=== PATIENT | female | born 2000 | race American Indian/Alaskan Native ===

== ENCOUNTER 2022-01-21 12:47 | Outpatient (CLI) | payer MEDICAID ==
[2022-01-21 13:28] VITALS: BP 111/62
[2022-01-21] MEDS ORDERED: LACTATED RINGERS 500 ML IV ONE (14:12)
--- NOTE | 2022-01-21 16:30 | Ultrasound Report ---
ULTRASOUND OBSTETRIC LIMITED ULTRASOUND BIOPHYSICAL PROFILE INDICATION / CLINICAL INFORMATION: well being. Clinical Gestational Age (GA): 35.4 weeks.days COMPARISON: None available. FINDINGS: BREATHING MOVEMENT = 2 GROSS BODY MOVEMENT = 2 TONE = 2 QUALITATIVE AMNIOTIC FLUID VOLUME = 2 TOTAL BIOPHYSICAL SCORE = 8/8 HEART RATE (beats per minute): 131 PRESENTATION: Cephalic. ADDITIONAL FINDINGS: None. IMPRESSION: 1. Biophysical Score = 8/8 Signer Name: Vivek Hernandes MD Signed: 01/21/2022 4:26 PM Workstation Name: [id number]
== END 2022-01-21 15:08 | disposition home or self-care (01) ==
LOC: TRG 12:47 → APU 12:48 → TRG 15:08
PROVIDERS: ATTEND Obstetrics & Gynecology
DX: Z34.93 Encounter for supervision of normal pregnancy, unspecified, third trimester (principal); Z3A.35 35 weeks gestation of pregnancy
CPT/HCPCS: 59025; 76819

== ENCOUNTER 2022-02-21 04:47 | Inpatient (IN) | payer MEDICAID ==
[2022-02-21] MEDS ORDERED: fentaNYL 100 MCG/2 ML INJ IV ONE (05:54)
[2022-02-21] MEDS ORDERED: LACTATED RINGERS 1,000 ML IV SCH (06:00)
[2022-02-21] MEDS ORDERED: ONDANSETRON 4 MG/2 ML INJ IV NR (06:26)
[2022-02-21] MEDS ORDERED: LOPERAMIDE 2 MG CAP PO PRN (06:34)
[2022-02-21] MEDS ORDERED: AMPICILLIN/NS 2 GM/100 ML 2 GM/100 ML BAG IV ONE (06:34)
[2022-02-21] MEDS ORDERED: OXYTOCIN 10 UNIT/1 ML INJ IM PRN (06:34)
[2022-02-21] MEDS ORDERED: LIDOCAINE (2%) 20 MG/1 ML VIAL 20 ML MDV INFILTRATI NR (06:34)
[2022-02-21] MEDS ORDERED: NALOXONE 0.4 MG/1 ML INJ IV PRN ×2 (06:34→08:45)
[2022-02-21] MEDS ORDERED: miSOPROStol 200 MCG TAB PR PRN (06:34)
[2022-02-21] MEDS ORDERED: PROMETHAZINE 25 MG TAB PO PRN ×2 (06:34→16:06)
[2022-02-21] MEDS ORDERED: ONDANSETRON 4 MG/2 ML INJ IV PRN ×2 (06:34→16:30)
--- NOTE | 2022-02-21 06:42 | History and Physical Report ---
History of Present Illness Date of examination: 02/21/22 Date of admission: 02/21/22 06:20 Chief complaint: I'm having more painful contractions. History of present illness: Pt is a @ 40 wks who presented to triage with increase in painful contractions. Pt was seen by [facility] during this d/t renal pyelectasis that was seen on 20 wks scan. [facility] subsequent scan, pyelectasis was not found and she was released from their care. EDC Confirmation: 02/21/2022 Gestational Age: 40 weeks on admission Past History : 2 Term Births: 0 Premature Births: 0 Living Children: 0 Para: 0 Mult. Births: 0 Prev : 0 Aborta: 1 Elect. Ab: 0 Spont. Ab: 1 Ectopics: 0 # 1 Delivery date: 2015 Weeks Gestation: 6 Delivery type: SAB Comments: recv'd medications and D&C per pt Past Medical History: Reviewed and updated today: Negative Past Medical History Past Surgical History: Reviewed and updated today: D&C: 2016 Family History Summary: Mother - Has Family History of Diabetes - Entered On: 06/17/2021 MGM - Has Family History Breast Cancer - Entered On: 06/17/2021 Social History: Smoking History: Patient is a former smoker. Risk Factors: Smoked Tobacco Use: Former smoker Cigars: Yes -- 5 per week Year Started: 2016 Cigars/Pipes Year Quit: 2020 Cigars/Pipes Years Since Last Quit: 0 Smokeless Tobacco Use: Former Items -- 3 per day Year Started: 2020 Year Quit: 2020 Years Since Last Quit: 0 Counseled to Quit/Cut Down: yes Passive Smoke Exposure: no HIV High Risk Behavior: no Caffeine Use: 2 drinks per day Exercise: no Exercise Counseling: yes Seatbelt Use: preg-outreach counselor % Sun Exposure: rarely Family History Risk Factors: Family History of AK in 1 Female Relative Age < 65: no Family History of AK in 1 Male Relative Age < 55: no No Dietary Counseling Reason: pn yes Alcohol Use: no Past Medical History Anesthesia Complications: negative Anemia: negative Autoimmune Disorder: negative Bleeding Disorder: negative Blood Transfusions: negative Breast Disease: negative Diabetes: negative Heart Disease: negative Hypertension: negative Hepatitis/Liver Disease: negative Kidney Disease/UTI: negative Neurologic/Epilepsy/Migraines: negative Phlebitis/Varicosities: negative Psychiatric: negative Pulmonary Disease/Asthma: negative Thyroid Disease: negative Hospitalizations: negative Surgery (Non-telephonic nurse case manager): D&C: 2016 Abnormal PAP: negative NICOLLE Exposure: negative Infertility: negative Uterine Anomaly: negative Uterine Surgery (not C/S): negative Other Gynecologic Problems: negative Social Hx: Smoking History: Patient is a former smoker. Infection History Hx of STD: none HIV Risk Eval: no Hepatitis B Risk Eval: low risk Personal hx. of genital herpes: no Partner hx. of genital herpes: no Rash, Viral, or Febrile illness since last LMP? no Varicella/Chicken Pox Status: Unknown TB Risk: no Genetic History Congenital Heart Defect: Mom: no Dad: no Terri Disease: Mom: no Dad: no Thalassemia Mom: no Dad: no Neural Tube Defect Mom: no Dad: no Down's Syndrome Mom: no Dad: no Wilman-Sachs Mom: no Dad: no Sickle Cell Disease/Trait Mom: no Dad: no Hemophilia Mom: no Dad: no Muscular Dystrophy Mom: no Dad: no Cystic Fibrosis Mom: no Dad: no Indra Chorea Mom: no Dad: no Mental Retardation Mom: no Dad: no Fragile X Mom: no Dad: no Other Genetic/Chromosomal Disorder Mom: no Dad: no Child w/other defect Mom: no Dad: no Enviromental Exposures Enviromental Exposures Reviewed Xray Exposure: no Medication, drug, or alcohol use since LMP: no Chemical/Other Exposure: no Exposure to Cat Liter: no Hx of Parvovirus (Fifth Disease): no Occupational Exposure to Children: none Active Medications (reviewed today): None Current Allergies (reviewed today): * LATEX (Critical) Past History Past Medical History: no pertinent history Past Surgical History: D&C (2015) Family/Genetic History: diabetes, cancer Social history: no significant social history - Obstetrical History Expected Date of Delivery: 02/21/22 Actual Gestation: 40 Week(s) 0 Day(s) : 2 Para: 0 Hx # Term Pregnancies: 0 Number of Pregnancies: 0 Spontaneous Abortions: 1 Induced : 0 Medications and Allergies Allergies Allergy/AdvReac Type Severity Reaction Status Date / Time No Known Allergies Allergy Unverified 01/21/22 13:10 Active Meds: Active Medications Lactated Ringer's (Lactated Ringers) 1,000 mls @ 125 mls/hr IV DIRECT L[place]TON Last Admin: 02/21/22 06:25 Dose: 125 mls/hr Ondansetron HCl (Ondansetron 4 Mg/2 Ml Inj) 4 mg IV ONCE ONE Stop: 02/21/22 06:27 Review of Systems All systems: negative - Vital Signs Vital signs: Vital Signs Pulse BP 73 128/73 02/21/22 05:09 02/21/22 05:09 Temp Pulse Resp BP Pulse Ox 97.8 F 73 20 128/73 02/21/22 06:35 02/21/22 05:09 02/21/22 06:35 02/21/22 05:09 - Physical Exam Breasts: Positive: deferred Cardiovascular: Regular rate Lungs: Positive: Normal air movement Abdomen: Positive: normal appearance, soft Uterus: Positive: enlarged (Normal size for 40 wks gestation.) Extremities: Positive: normal Deep Tendon Reflex Grade: Normal +2 - Obstetrical FHR: category 1 Uterine Contraction Monitor Mode: External Cervical Dilatation: 3 (Per coordinator of evaluation) Cervical Effacement Percentage: 90 station: -2 Uterine Contraction Pattern: Regular Uterine Tone Measurement Phase: Resting Uterine Contraction Intensity: Moderate Results All other labs normal. GBS POSITIVE HBsAg Screen Negative Negative *1 RPR Non Reactive Non Reactive *2 Rubella Antibodies, IgG 3.74 index Immune >0.99 *3 Non-immune <0.90 Equivocal 0.90 - 0.99 Immune >0.99 ABO Grouping O *4 Rh Factor Positive *5 Please note: Prior records for this patient's ABO / Rh type are not available for additional verification. Antibody Screen Negative Negative *6 Tests: (4) HB Solu + Rflx Fra (650836) Hemoglobin (Hgb) Solubility Negative Negative *44 Tests: (5) HIV Ag/Ab with Reflex ([id number]) HIV Screen 4th Generation wRfx Non Reactive Non Reactive *45 Tests: (6) Varicella-Zoster V Ab, IgG ([id number]) ! Varicella Zoster IgG [L] <135 index Immune >165 *46 Negative <135 Equivocal 135 - 165 Positive >165 A positive result generally indicates exposure to the pathogen or administration of specific immunoglobulins, but it is not indication of active infection or stage of disease. Tests: (7) HCV Antibody reflex to EB ([id number]) HCV Ab <0.1 s/co ratio 0.0-0.9 *47 Tests: (8) Interpretation: ([id number]) ! Interpretation: SPRCS *48 Negative Not infected with HCV, unless recent infection is suspected or other evidence exists to indicate HCV infection. Assessment and Plan A: 21 y.o. @ 40 wks, early labor, GBS positive, varicella non immune. Former smoker. - Patient Problems (1) 40 weeks gestation of Current Visit: Yes Status: Acute Plan to address problem: Admit to labor and delivery. Initiate IV. Drawn admission labs. Augmentation of labor with Pitocin per protocol. Anticipate . (2) GBS (group B streptococcus) infection Current Visit: Yes Status: Acute Plan to address problem: Antibiotics to be given while pt is in labor. (3) Maternal varicella, non-immune Current Visit: Yes Status: Acute Plan to address problem: Offer vaccine . (4) Former cigar smoker Current Visit: Yes Status: Acute
[2022-02-21] MEDS ORDERED: METHYLERGONOVINE MALEATE 0.2 MG/ML VIAL IM PRN (07:00)
[2022-02-21] MEDS ORDERED: CARBOPROST TROMETHAMINE 250 MCG/1 ML INJ IM PRN (07:00)
[2022-02-21] MEDS ORDERED: ACETAMINOPHEN 325 MG TAB PO PRN (07:00)
[2022-02-21] MEDS ORDERED: ePHEDrine SULFATE 50 MG/1 ML INJ IV PRN ×2 (07:00→08:45)
[2022-02-21] MEDS ORDERED: TERBUTALINE 1 MG/1 ML INJ SUB-Q PRN (07:00)
[2022-02-21] MEDS ORDERED: fentaNYL 100 MCG/2 ML INJ IV PRN (07:00)
[2022-02-21] MEDS ORDERED: OXYTOCIN DRIP 30 UNITS/500 ML BAG IV SCH ×2 (07:00)
[2022-02-21] MEDS ORDERED: BUTORPHANOL 2 MG/1 ML INJ IV PRN (07:00)
[2022-02-21] MEDS: LACTATED RINGERS 1,000 ML IV SCH ×2 (07:30→08:42)
[2022-02-21 07:41] LABS: Hematocrit 34.3 % (30.3-42.9); Mean Corpuscular HGB Conc 32 % (30-34); Mean Corpuscular Volume 87 fl (79-97); Platelet Count 151 K/mm3 (140-440); Red Blood Count 3.93 M/mm3 (3.65-5.03); Red Cell Distribution Width 14.9 % (13.2-15.2)
--- NOTE | 2022-02-21 08:50 | Anesthesia Consultation ---
Anesthesia Consult and Med Hx Date of service: 02/21/22 - Airway Anesthetic Teeth Evaluation: Poor (Missing/chipped upper left lateral and central incisors) ROM Head & Neck: Adequate Mental/Hyoid Distance: Adequate Mallampati Class: Class II Intubation Access Assessment: Probably Good - Pulmonary Exam CTA: Yes - Cardiac Exam Cardiac Exam: RRR - Pre-Operative Health Status ASA Pre-Surgery Classification: ASA2 Proposed Anesthetic Plan: Epidural, Spinal - Pulmonary Hx Asthma: No COPD: No Hx Pneumonia: No - Cardiovascular System Hx Hypertension: No - Central Nervous System Hx Seizures: No Hx Psychiatric Problems: No - Endocrine Hx Renal Disease: No Hx End Stage Renal Disease: No Hx Hypothyroidism: No Hx Hyperthyroidism: No - Hematic Hx Anemia: No Hx Sickle Cell Disease: No - Other Systems Hx Alcohol Use: No
--- NOTE | 2022-02-21 08:53 | Progress Note ---
Spinal Anesthesia Block - Spinal Anesthesia Block Start Time: 07:58 Stop Time: 08:22 Performed by:: COSMO LINCOLN Procedure: Combined Spinal-Epidural Patient is requesting epidural for labor and pain. H&P, labs were reviewed. Patient ID confirmed, all questions and concerns were answered, and consent was signed. Timeout was performed at bedside. Patient in sitting position. Sterile prep and drape was performed. 3ml of 1% lidocaine skin wheal at L3- L4 interspace. 17-gauge Tuohy epidural needle was advanced to loss of resistance with saline technique cm x 2 attempts. 25G spinal needle introduced through epidural needle to the spinal space. Clear CSF. Injected .1ml of Precedex in the spinal space. Negative CSF negative blood. Epidural catheter advanced to 15 centimeters. Negative aspiration, test dose 3ml 1.5% Lidocaine with epi - negative. Sterile dressing applied. Patient tolerated procedure.
[2022-02-21] MEDS ORDERED: ACETAMINOPHEN IV 1,000 MG/100 ML BOTTLE IV SCH (09:00)
[2022-02-21] MEDS ORDERED: fentaNYL-BUPIV 2 MCG/ML-0.125% 200 MCG/100 ML BAG EPIDURAL SCH (09:00)
[2022-02-21] MEDS ORDERED: AMPICILLIN/NS 1 GM/50 ML 1 GM/50 ML BAG IV ONE (11:08)
[2022-02-21] MEDS ORDERED: MINERAL OIL 30 ML ORAL LIQD ONE (12:17)
--- NOTE | 2022-02-21 12:49 | Procedure Note ---
OB Delivery Note - Delivery Date of Delivery: 02/21/22 Information Systems Manager: MAGGIE PERALTA Estimated blood loss: <100cc - Vaginal Delivery presentation: vertex Delivery position: OA Intrapartum events: mult.variable deceleratio Delivery induction: none Delivery augmentation: rupture of membranes Delivery monitor: external FHT, external uterine Route of delivery: Delivery placenta: spontaneous Delivery cord: nuchal cord (x1 reduced), 3 umbilical vessels Episiotomy: none Delivery laceration: vaginal side wall Delivery repair: vicryl Anesthesia: epidural - Infant A at 1 minute: 8 at 5 minutes: 9 Gender: Male (2980g 6lbs 9oz)
[2022-02-21] MEDS ORDERED: WITCH HAZEL/ GLYCERIN PAD TP PRN (16:06)
[2022-02-21] MEDS ORDERED: PROMETHAZINE 25 MG RECT SUPP PR PRN (16:06)
[2022-02-21] MEDS ORDERED: LANOLIN/ZINC/DIMETHICONE (LANSINOH) 7 GM TP PRN (16:06)
[2022-02-21] MEDS ORDERED: BENZOCAINE/MENTHOL 20/0.5% TOP SPRAY 56 GM TP PRN (16:06)
[2022-02-21] MEDS ORDERED: diphenhydrAMINE 25 MG CAP PO PRN (17:00)
[2022-02-21] MEDS: IBUPROFEN 800 MG TAB PO SCH (17:36)
[2022-02-21] MEDS ORDERED: HYDROCORTISONE 25 MG RECTAL SUPP PR PRN (22:00)
[2022-02-21] MEDS ORDERED: MINERAL OIL 30 ML ORAL LIQD PO PRN (22:00)
[2022-02-21] MEDS ORDERED: MAGNESIUM HYDROXIDE (MOM) ORAL LIQD UDC PO PRN (22:00)
[2022-02-22] MEDS: IBUPROFEN 800 MG TAB PO SCH ×5 (00:09→22:47)
[2022-02-22] MEDS: DOCUSATE SODIUM 100 MG CAP PO SCH ×3 (00:13→21:22)
[2022-02-22] MEDS: FERROUS SULFATE 325 MG TAB PO SCH ×3 (00:14→21:22)
[2022-02-22 00:48] LABS: Hematocrit 27.7 % (30.3-42.9); Hemoglobin 8.9 gm/dl (10.1-14.3)
[2022-02-22] MEDS: SENNOSIDES/DOCUSATE SODIUM 8.6/50 MG TAB PO SCH (05:04)
--- NOTE | 2022-02-22 08:49 | Progress Note ---
Assessment and Plan A: 21 y.o. s/p , some mildly elevated blood pressures noted since delivery. - Patient Problems (1) (normal spontaneous vaginal delivery) Current Visit: Yes Status: Acute Plan to address problem: Continue with care. Continue to monitor blood pressures. Pre eclampsia labs ordered. RN taking care of patient aware of labs being ordered. Subjective - Subjective Date of service: 02/22/22 Principal diagnosis: s/p Interval history: Pt with some mild range blood pressures with the highest blood pressure since delivery being 150/85. Pt denies FONTANA, blurred vision, spots before her eyes, chest pain, shortness of breath, and upper abdominal pain. Patient reports: appetite normal, voiding normally, pain well controlled, flatus, ambulating normally [place]: doing well Objective - Vital Signs Latest vital signs: Vital Signs Temp Pulse Resp BP BP Pulse Ox Pulse Ox 02/22/22 00:53 99.0 F 71 18 113/57 99 02/21/22 21:18 98.9 F 74 20 150/85 98 02/21/22 19:34 99 02/21/22 16:37 97.8 F 65 20 143/69 99 02/21/22 14:30 97.6 F 70 20 125/72 100 100 02/21/22 13:56 71 128/61 02/21/22 13:46 78 137/63 02/21/22 13:31 76 137/76 02/21/22 13:27 86 124/76 02/21/22 12:36 100 H 99 02/21/22 12:31 91 H 99 02/21/22 12:27 98 F 16 02/21/22 12:26 105 H 98 02/21/22 12:21 134 H 100 02/21/22 12:16 102 H 88 02/21/22 12:11 104 H 99 02/21/22 12:06 86 100 02/21/22 12:01 111 H 98 02/21/22 11:56 80 99 02/21/22 11:51 77 99 02/21/22 11:46 88 144/91 99 02/21/22 11:41 85 99 02/21/22 11:39 98 F 17 02/21/22 11:36 91 H 100 02/21/22 11:31 81 127/73 99 02/21/22 11:26 79 100 02/21/22 11:21 78 99 02/21/22 11:16 76 99 02/21/22 11:11 65 98 02/21/22 11:06 69 99 02/21/22 11:01 76 134/87 99 02/21/22 10:56 67 99 02/21/22 10:51 67 98 02/21/22 10:46 69 97 02/21/22 10:41 80 97 02/21/22 10:36 81 100 02/21/22 10:31 76 99 02/21/22 10:26 69 99 02/21/22 10:21 67 100 02/21/22 10:16 73 99 02/21/22 10:11 78 99 02/21/22 10:06 70 100 02/21/22 10:01 67 99 02/21/22 09:56 68 100 02/21/22 09:51 67 100 02/21/22 09:46 76 131/83 100 02/21/22 09:41 71 98 02/21/22 09:36 73 99 02/21/22 09:32 66 143/73 02/21/22 09:31 62 100 02/21/22 09:26 73 99 02/21/22 09:21 89 100 02/21/22 09:16 68 100 02/21/22 09:11 79 99 02/21/22 09:06 65 99 02/21/22 09:01 80 132/81 100 02/21/22 08:56 76 100 02/21/22 08:51 70 99 Intake and Output 02/21/22 02/22/22 02/22/22 22:59 06:59 14:59 Intake Total 600 240 Balance 600 240 Intake: Oral 360 120 Intake, Free Water 240 120 Other: Total, Intake Amount 360 120 # Voids Void 1 1 - Exam Breasts: Present: deferred Cardiovascular: Present: Regular rate Lungs: Present: Normal air movement Abdomen: Present: normal appearance, soft Vulva: both: normal Uterus: Present: normal, firm Extremities: Present: normal Deep Tendon Reflex Grade: Normal +2 - Labs Labs: Abnormal lab results 02/22/22 Range/Units 00:28 Hgb 8.9 L (10.1-14.3) gm/dl Hct 27.7 L D (30.3-42.9) %
[2022-02-22] MEDS: PRENATAL VIT27-FE FUMARATE-FOLIC ACID VIT TAB PO SCH (11:23)
[2022-02-22] MEDS: oxyCODONE /ACETAMINOPHEN 5-325MG TAB PO PRN (11:25)
[2022-02-22 11:45] LABS: Hemoglobin 9.3 gm/dl (10.1-14.3); Mean Corpuscular HGB Conc 33 % (30-34); Mean Corpuscular Volume 87 fl (79-97); Platelet Count 138 K/mm3 (140-440); Red Blood Count 3.23 M/mm3 (3.65-5.03); Red Cell Distribution Width 14.8 % (13.2-15.2)
[2022-02-22 12:04] LABS: Alanine Aminotransferase 7 units/L (7-56); Uric Acid 3.9 mg/dL (3.5-7.6)
[2022-02-22] MEDS ORDERED: TETANUS,DIPH,PERTUSS(ACELL) VACCINE 0.5 ML SYRINGE IM ONE (12:50)
--- NOTE | 2022-02-22 13:31 | Event Note ---
Date: 02/22/22 Labs reviewed and consulted with Dr. Nelson. Discussed labs with patient. Platelet count is slightly below normal at 138 (Low normal 140 per [facility] lab). Explained that we will have to continue to watch her blood pressures, with an increase in frequency of blood pressure taking to every 4 hours, and redraw Pre Eclampsia labs this evening. Last blood pressure recorded was 146/85. Pt continues to deny FONTANA, blurred vision, spots before her eyes, chest pain, shortness of breath, and upper abdominal pain. Explained that pre eclampsia can happen during the period, there is an increase risk for having seizures, and the mortality can be high from pre eclampsia. We also discussed should her lab work worsen and/or her blood pressures become severe range, she will have to transfer back to labor and delivery for magnesium infusion, labs, blood pressure monitoring. Will hold off on magnesium at this time. Explained plan of care to patient and her mother and they verbalized understanding. All questions and concerns were addressed.
--- NOTE | 2022-02-22 14:02 | Post Anesthesia Evaluation ---
- Post Anesthesia Evaluation Patient Participated: Yes Airway Patent: Yes Stable Respiratory Function: Yes Nausea/Vomiting: No Temp > 96.8F: Yes Pain Manageable: Yes Adequeate Hydration: Yes Anesthesia Complications: No Block Receding Appropriately: Yes
[2022-02-22 19:57] LABS: Hematocrit 27.7 % (30.3-42.9); Mean Corpuscular HGB Conc 33 % (30-34); Mean Corpuscular Volume 87 fl (79-97); Platelet Count 147 K/mm3 (140-440); Red Blood Count 3.18 M/mm3 (3.65-5.03); Red Cell Distribution Width 14.7 % (13.2-15.2)
[2022-02-22 20:17] LABS: Alanine Aminotransferase 8 units/L (7-56)
[2022-02-23] MEDS: IBUPROFEN 800 MG TAB PO SCH ×3 (04:41→15:40)
--- NOTE | 2022-02-23 09:34 | Progress Note ---
Assessment and Plan Pt reports ambulating, voiding, and eating without difficulty. Pt reports she's "frustrated" and she wants to be discharged home today. Pt reports she's not able to sleep well in the hospital and has positive family support at home. Preeclampsia risks d/w pt, including but not limited to seizure, stroke, heart attack, and . POC with precautions reviewed. Pt denies all ssx of preeclampsia at this time. Questions encouraged and answered. Pt verbalizes understanding and agrees to POC. Dr. Blanco made aware. Orders placed for an tihypertensives. Will continue to monitor BP and ssx for worsening. Plan to discharge home later today if remains stable. POC d/w RN. RN verbalizes understanding. - Patient Problems (1) (normal spontaneous vaginal delivery) Current Visit: Yes Status: Acute Subjective - Subjective Date of service: 02/23/22 Principal diagnosis: PPD #2 s/p Patient reports: appetite normal, voiding normally, pain well controlled, ambulating normally, other (pt denies FONTANA, RUQ abdominal pain, and vision changes at this time) [place]: doing well, nursing well Objective - Vital Signs Latest vital signs: Vital Signs Temp Pulse Resp BP BP Pulse Ox Pulse Ox 02/23/22 06:05 64 19 137/76 100 02/23/22 04:32 98.1 F 56 L 18 158/89 100 02/23/22 00:42 98.0 F 59 L 18 151/78 100 02/22/22 21:15 100 02/22/22 20:23 97.7 F 65 18 144/88 99 02/22/22 16:31 98 F 57 L 20 143/74 100 02/22/22 12:05 98 F 61 20 146/85 99 02/22/22 11:25 20 Intake and Output 02/22/22 02/23/22 02/23/22 23:59 07:59 15:59 Intake Total 320 300 Balance 320 300 Intake: Oral 320 Intake, Free Water 300 Other: Total, Intake Amount 320 # Voids Void 1 1 - Exam Breasts: Present: normal, Lungs: Present: Normal air movement Abdomen: Present: normal appearance, soft. Absent: distention, tenderness, guarding Uterus: Present: normal, firm Extremities: Present: normal - Labs Labs: Abnormal lab results 02/22/22 02/22/2222 Range/Units 11:06 11:06 19:18 RBC 3.23 L 3.18 L (3.65-5.03) M/mm3 Hgb 9.3 L 9.0 L (10.1-14.3) gm/dl Hct 28.0 L 27.7 L (30.3-42.9) % Plt Count 138 L (140-440) K/mm3 Creatinine 0.5 L (0.6-1.2) mg/dL Lactate Dehydrogenase 258 H (91-180) units/L 02/22/22 Range/Units 19:18 RBC (3.65-5.03) M/mm3 Hgb (10.1-14.3) gm/dl Hct (30.3-42.9) % Plt Count (140-440) K/mm3 Creatinine (0.6-1.2) mg/dL Lactate Dehydrogenase 233 H (91-180) units/L
[2022-02-23] MEDS: DOCUSATE SODIUM 100 MG CAP PO SCH ×2 (10:07→21:08)
[2022-02-23] MEDS: FERROUS SULFATE 325 MG TAB PO SCH ×2 (10:07→21:09)
[2022-02-23] MEDS: PRENATAL VIT27-FE FUMARATE-FOLIC ACID VIT TAB PO SCH (10:08)
[2022-02-23] MEDS: SENNOSIDES/DOCUSATE SODIUM 8.6/50 MG TAB PO SCH (15:40)
--- NOTE | 2022-02-23 17:26 | Progress Note ---
Subjective Date of service: 02/23/22 (PDPH) Principal diagnosis: PPD #2 s/p Interval history: Anesthesia services called by RN regarding patient complaint of headache. Patient reports persistent headache since shortly after delivery on 02/21/22. Pain is described as "throbbing" and is located at the base of the neck and in the frontal/scientology region. Pain is better with lying down at approx 30 deg and with ice pack to the neck. Pain is worse with sitting and standing. She denies photosensitivity though her mother at bedside states that she has been requesting that room lights be turned off most of the day. She denies tinnitus, diplopia, nasal congestion or other neurologic symptoms. She has been breast feeding, ambulating, and voiding without difficulty. At time of my exam, she is sitting upright in bed with the lights dimmed, in no acute distress. Notably, she has been diagnosed with pre-eclampsia and was started on labetalol this morning. She states that her pain was initially manageable with ibuprofen but may be worse after starting antihypertensives. Patient was previously evaluated by DILAN Hagen for these symptoms and was offered EBP vs conservative management for presumed PDPH. Patient opted for conservative management at that time. I again discussed the likelihood that symptoms are 2/2 PDPH. I discussed the pathophysiology of PDPH as well and expected clinical course for both EBP and conservative management. I discussed risks/benefits of both options. At this time, patient elects for conservative management. She declines IV medications. I advised bed rest as needed, maintaining adequate oral hydration, and PO analgesics. I explained that should she decide to proceed with EBP or if symptoms worsen or do not improve over the next 1-2 wks, she should be re-evaluated by anesthesia services. Patient and mother at bedside verbalized understanding and are in agreement with this plan. Plan discussed with patient's RN. Objective - Constitutional Vitals: Vital Signs - 12hr 02/23/22 02/23/22 02/23/22 06:05 08:30 08:45 Temperature 98.8 F Pulse Rate 64 63 Respiratory 19 20 Rate Blood Pressure 137/76 Blood Pressure 162/93 [Right] O2 Sat by Pulse 100 99 Oximetry O2 Sat by Pulse 98 Oximetry [ Bilateral] 02/23/22 02/23/22 02/23/22 09:50 10:08 11:20 Temperature Pulse Rate 67 Respiratory Rate Blood Pressure 178/99 Blood Pressure 178/99 154/82 [Right] O2 Sat by Pulse Oximetry O2 Sat by Pulse Oximetry [ Bilateral] 02/23/22 15:30 Temperature 97.4 F L Pulse Rate 89 Respiratory 18 Rate Blood Pressure Blood Pressure 130/74 [Right] O2 Sat by Pulse 100 Oximetry O2 Sat by Pulse Oximetry [ Bilateral] - Labs CBC & Chem 7: 02/22/22 19:18 02/22/22 19:18 Labs: Abnormal lab results 02/22/22 02/22/22 Range/Units 19:18 19:18 RBC 3.18 L (3.65-5.03) M/mm3 Hgb 9.0 L (10.1-14.3) gm/dl Hct 27.7 L (30.3-42.9) % Lactate Dehydrogenase 233 H (91-180) units/L
[2022-02-23] MEDS: oxyCODONE /ACETAMINOPHEN 5-325MG TAB PO PRN (18:55)
[2022-02-23] MEDS ORDERED: hydrALAZINE 20 MG/1 ML INJ IV PRN (22:34)
[2022-02-23] MEDS ORDERED: MAGNESIUM SULFATE 4 GM/100 ML BAG IV ONE (22:34)
--- NOTE | 2022-02-23 22:48 | Event Note ---
Date: 02/23/22 received call from RN regarding 2 severe range b/p despite PO labetalol. Pt called on phone; she denies FONTANA, visual changes or epigastric pain. Discussed need to transfer to L&D for IV magnesium sulfate for neuroprotection. Labetalol increased to 300MG TID. All questions addressed, orders in EMR. Dr Blanco updated.
[2022-02-23] MEDS: LACTATED RINGERS 1,000 ML IV SCH (23:51)
[2022-02-24] MEDS: MAGNESIUM SULFATE 40GM/1000ML 40 GM/1,000 ML BAG IV SCH ×2 (00:09→20:21)
[2022-02-24] MEDS: IBUPROFEN 800 MG TAB PO SCH ×2 (07:02→13:18)
[2022-02-24] MEDS: FERROUS SULFATE 325 MG TAB PO SCH (09:20)
[2022-02-24] MEDS: SENNOSIDES/DOCUSATE SODIUM 8.6/50 MG TAB PO SCH (09:22)
[2022-02-24] MEDS: DOCUSATE SODIUM 100 MG CAP PO SCH (09:22)
[2022-02-24] MEDS: PRENATAL VIT27-FE FUMARATE-FOLIC ACID VIT TAB PO SCH (09:26)
[2022-02-24] MEDS: LACTATED RINGERS 1,000 ML IV SCH ×2 (09:30→19:51)
[2022-02-24 09:31] LABS: Hematocrit 28.3 % (30.3-42.9); Hemoglobin 9.4 gm/dl (10.1-14.3); Mean Corpuscular HGB Conc 33 % (30-34); Mean Corpuscular Volume 86 fl (79-97); Platelet Count 178 K/mm3 (140-440); Red Cell Distribution Width 14.5 % (13.2-15.2)
[2022-02-24 09:48] LABS: Alanine Aminotransferase 19 units/L (7-56)
--- NOTE | 2022-02-24 11:44 | Progress Note ---
Assessment and Plan [place] draining clear yellow urine in adequate amounts. Pt performing am care at this time and she reports she's in good spirits. Denies RUQ pain and vision changes. Pt reports an occasional headache which resolves with ibuprofen. POC d/w pt. Questions encouraged and answered. Pt verbalizes understanding and agrees to POC. Dr. Harmon aware. Will continue to monitor BP and ssx for worsening. Discussed plan to discharge home tomorrow if remains stable. POC d/w RN. RN requested to notify provider if BP >160 systolic or >100 diastolic. RN verbalizes understanding. - Patient Problems (1) (normal spontaneous vaginal delivery) Current Visit: Yes Status: Acute (2) Preeclampsia in period Current Visit: Yes Status: Acute Plan to address problem: Continue Labetalol 300mg TID magnesium level q6h as ordered while pt is on medication seizure precautions strict I&O Magnesium Sulfate x24hrs continue to monitor pt BP and ssx for worsening and notify provider with any changes in status Subjective - Subjective Date of service: 02/24/22 Principal diagnosis: PPD #3 s/p , Preeclampsia, Magnesium Sulfate infusing Patient reports: appetite normal, pain well controlled [place]: doing well Objective - Vital Signs Latest vital signs: Vital Signs Temp Pulse Resp BP BP Pulse Ox Pulse Ox 02/24/22 11:37 86 100 02/24/22 11:32 85 99 02/24/22 11:27 83 98 02/24/22 11:22 91 H 100 02/24/22 11:17 93 H 98 02/24/22 11:14 97 H 137/85 02/24/22 11:12 94 H 98 02/24/22 11:07 96 H 98 02/24/22 11:02 103 H 98 02/24/22 10:57 97 H 97 02/24/22 10:55 97 H 94 02/24/22 10:52 99 H 98 02/24/22 10:47 87 100 02/24/22 10:42 87 99 02/24/22 10:37 91 H 98 02/24/22 10:34 105 H 94 98 02/24/22 10:32 101 H 95 02/24/22 10:27 87 98 02/24/22 10:22 95 H 97 02/24/22 10:21 93 H 94 02/24/22 10:17 92 H 98 02/24/22 10:14 86 140/76 02/24/22 10:12 92 H 99 02/24/22 10:07 94 H 99 02/24/22 10:02 94 H 98 02/24/22 09:57 83 98 02/24/22 09:52 92 H 97 02/24/22 09:47 104 H 99 02/24/22 09:42 91 H 99 02/24/22 09:37 87 98 02/24/22 09:32 92 H 99 02/24/22 09:27 95 H 99 02/24/22 09:22 89 98 02/24/22 09:19 93 H 133/78 02/24/22 09:17 89 99 02/24/22 09:14 86 133/78 02/24/22 09:12 85 99 02/24/22 09:07 98 H 98 02/24/22 09:02 91 H 98 02/24/22 08:57 92 H 99 02/24/22 08:52 89 99 02/24/22 08:47 89 97 02/24/22 08:42 94 H 99 02/24/22 08:37 96 H 99 02/24/22 08:32 89 98 02/24/22 08:30 98.7 F 89 16 98 02/24/22 08:27 96 H 99 02/24/22 08:25 98 02/24/22 08:22 96 H 99 02/24/22 08:17 89 98 02/24/22 08:14 106 H 122/71 02/24/22 08:12 84 97 02/24/22 08:07 84 98 02/24/22 08:02 84 97 02/24/22 07:57 85 97 02/24/22 07:52 97 H 96 02/24/22 07:47 89 96 02/24/22 07:42 92 H 97 02/24/22 07:37 94 H 96 02/24/22 07:32 86 97 02/24/22 07:27 87 96 02/24/22 07:22 82 97 02/24/22 07:17 82 98 02/24/22 07:14 80 141/72 02/24/22 07:12 95 H 98 02/24/22 07:07 76 98 02/24/22 07:02 84 18 97 02/24/22 06:57 87 99 02/24/22 06:52 94 H 98 02/24/22 06:47 89 99 02/24/22 06:42 88 99 02/24/22 06:37 91 H 98 02/24/22 06:32 84 99 02/24/22 06:27 94 H 99 02/24/22 06:22 97 H 97 02/24/22 06:19 96 H 112/79 02/24/22 06:17 91 H 97 02/24/22 06:12 97 H 96 02/24/22 06:07 102 H 98 02/24/22 06:02 128 H 92 02/24/22 06:01 65 94 02/24/22 06:00 98 02/24/22 05:57 95 H 98 02/24/22 05:52 92 H 99 02/24/22 05:48 83 133/65 02/24/22 05:47 90 99 02/24/22 05:42 110 H 96 02/24/22 05:37 85 98 02/24/22 05:32 93 H 99 02/24/22 05:27 93 H 99 02/24/22 05:22 80 99 02/24/22 05:18 80 142/72 02/24/22 05:17 84 99 02/24/22 05:12 89 98 02/24/22 05:07 90 97 02/24/22 05:02 96 H 98 02/24/22 04:57 87 100 02/24/22 04:52 92 H 98 02/24/22 04:49 86 147/85 02/24/22 04:47 84 100 02/24/22 04:42 92 H 99 02/24/22 04:37 84 98 02/24/22 04:32 83 99 02/24/22 04:27 86 100 02/24/22 04:22 91 H 98 02/24/22 04:18 87 133/77 02/24/22 04:17 81 98 02/24/22 04:12 90 99 02/24/22 04:07 105 H 98 02/24/22 04:02 85 98 02/24/22 04:00 99 02/24/22 03:57 89 98 02/24/22 03:52 97 H 97 02/24/22 03:49 104 H 128/74 02/24/22 03:47 84 98 02/24/22 03:43 80 141/71 02/24/22 03:42 90 98 02/24/22 03:37 96 H 97 02/24/22 03:32 87 96 02/24/22 03:27 86 97 02/24/22 03:22 94 H 99 02/24/22 03:17 82 99 02/24/22 03:12 83 98 02/24/22 03:07 73 98 02/24/22 03:02 94 H 98 02/24/22 02:57 91 H 98 02/24/22 02:52 92 H 99 02/24/22 02:48 88 130/75 02/24/22 02:47 94 H 98 02/24/22 02:42 84 96 02/24/22 02:37 85 97 02/24/22 02:32 88 98 02/24/22 02:27 85 97 02/24/22 02:22 95 H 99 02/24/22 02:19 90 118/75 02/24/22 02:17 84 99 02/24/22 02:12 89 97 02/24/22 02:07 89 99 02/24/22 02:02 86 97 02/24/22 02:00 99 02/24/22 01:57 87 98 02/24/22 01:52 88 97 02/24/22 01:48 85 129/79 02/24/22 01:47 78 97 02/24/22 01:42 82 97 02/24/22 01:37 83 97 02/24/22 01:32 86 98 02/24/22 01:27 83 99 02/24/22 01:22 83 99 02/24/22 01:19 84 125/91 02/24/22 01:17 85 98 02/24/22 01:12 83 98 02/24/22 01:07 86 99 02/24/22 01:02 77 98 02/24/22 00:57 85 99 02/24/22 00:52 78 100 02/24/22 00:48 86 133/76 02/24/22 00:47 87 99 02/24/22 00:42 84 98 02/24/22 00:37 76 100 02/24/22 00:32 89 100 02/24/22 00:27 94 H 99 02/24/22 00:22 101 H 97 02/24/22 00:17 82 99 02/24/22 00:16 81 148/68 02/24/22 00:12 86 99 02/24/22 00:11 77 154/76 02/24/22 00:05 74 163/78 02/24/22 00:00 98 02/23/22 23:30 68 178/92 02/23/22 22:18 65 20 183/101 97 02/23/22 22:00 97 02/23/22 21:09 70 168/103 02/23/22 21:06 98.6 F 88 18 168/103 02/23/22 21:00 97 02/23/22 20:00 100 02/23/22 19:55 18 02/23/22 15:30 97.4 F L 89 18 130/74 100 Intake and Output 02/23/22 02/24/22 02/24/22 23:59 07:59 15:59 Intake Total 200 500 Output Total 2000 1100 Balance 200 -2000 -600 Intake: Oral 200 500 Output: Urine 2000 1100 Void 2000 1100 Other: Total, Intake Amount 200 500 Total, Output Amount 1100 1100 # Voids Void 2 - Exam Breasts: Present: normal Lungs: Present: Normal air movement Abdomen: Present: normal appearance, soft. Absent: distention, tenderness, guarding Vulva: both: normal Uterus: Present: normal, firm, fundal height below umbilicus Extremities: Present: normal - Labs Labs: Abnormal lab results 02/24/22 02/24/22 02/24/22 Range/Units 08:48 08:48 08:48 RBC 3.30 L (3.65-5.03) M/mm3 Hgb 9.4 L (10.1-14.3) gm/dl Hct 28.3 L (30.3-42.9) % Creatinine 0.5 L (0.6-1.2) mg/dL Magnesium 5.30 H (1.7-2.3) mg/dL
[2022-02-24] MEDS: ACETAMINOPHEN 325 MG TAB PO PRN (19:52)
--- NOTE | 2022-02-24 22:07 | Progress Note ---
Subjective Date of service: 02/24/22 Principal diagnosis: PPD #3 s/p , Preeclampsia, Magnesium Sulfate infusing Interval history: Pt states she would like to receive an epidural blood patch at this time. Objective - Constitutional Vitals: Vital Signs - 12hr 02/24/22 02/24/22 02/24/22 10:07 10:12 10:14 Temperature Pulse Rate 94 H 92 H 86 Respiratory Rate Blood Pressure 140/76 Blood Pressure [Right] O2 Sat by Pulse 99 99 Oximetry O2 Sat by Pulse Oximetry [ Bilateral] 02/24/22 02/24/22 02/24/22 10:17 10:21 10:22 Temperature Pulse Rate 92 H 93 H 95 H Respiratory Rate Blood Pressure Blood Pressure [Right] O2 Sat by Pulse 98 94 97 Oximetry O2 Sat by Pulse Oximetry [ Bilateral] 02/24/22 02/24/22 02/24/22 10:27 10:32 10:34 Temperature Pulse Rate 87 101 H 105 H Respiratory Rate Blood Pressure Blood Pressure [Right] O2 Sat by Pulse 98 95 94 Oximetry O2 Sat by Pulse 98 Oximetry [ Bilateral] 02/24/22 02/24/22 02/24/22 10:37 10:42 10:47 Temperature Pulse Rate 91 H 87 87 Respiratory Rate Blood Pressure Blood Pressure [Right] O2 Sat by Pulse 98 99 100 Oximetry O2 Sat by Pulse Oximetry [ Bilateral] 02/24/22 02/24/22 02/24/22 10:52 10:55 10:57 Temperature Pulse Rate 99 H 97 H 97 H Respiratory Rate Blood Pressure Blood Pressure [Right] O2 Sat by Pulse 98 94 97 Oximetry O2 Sat by Pulse Oximetry [ Bilateral] 02/24/22 02/24/22 02/24/22 11:02 11:07 11:12 Temperature Pulse Rate 103 H 96 H 94 H Respiratory Rate Blood Pressure Blood Pressure [Right] O2 Sat by Pulse 98 98 98 Oximetry O2 Sat by Pulse Oximetry [ Bilateral] 02/24/22 02/24/22 02/24/22 11:14 11:17 11:22 Temperature Pulse Rate 97 H 93 H 91 H Respiratory Rate Blood Pressure 137/85 Blood Pressure [Right] O2 Sat by Pulse 98 100 Oximetry O2 Sat by Pulse Oximetry [ Bilateral] 02/24/22 02/24/22 02/24/22 11:27 11:32 11:37 Temperature Pulse Rate 83 85 86 Respiratory Rate Blood Pressure Blood Pressure [Right] O2 Sat by Pulse 98 99 100 Oximetry O2 Sat by Pulse Oximetry [ Bilateral] 02/24/22 02/24/22 02/24/22 11:42 11:47 11:52 Temperature Pulse Rate 84 85 85 Respiratory Rate Blood Pressure Blood Pressure [Right] O2 Sat by Pulse 96 97 98 Oximetry O2 Sat by Pulse Oximetry [ Bilateral] 02/24/22 02/24/22 02/24/22 11:57 12:02 12:07 Temperature Pulse Rate 82 89 88 Respiratory Rate Blood Pressure Blood Pressure [Right] O2 Sat by Pulse 99 99 97 Oximetry O2 Sat by Pulse Oximetry [ Bilateral] 02/24/22 02/24/22 02/24/22 12:12 12:17 12:22 Temperature Pulse Rate 85 90 92 H Respiratory Rate Blood Pressure Blood Pressure [Right] O2 Sat by Pulse 96 98 98 Oximetry O2 Sat by Pulse Oximetry [ Bilateral] 02/24/22 02/24/22 02/24/22 12:23 12:27 12:30 Temperature Pulse Rate 86 80 Respiratory Rate Blood Pressure 121/75 Blood Pressure [Right] O2 Sat by Pulse 98 Oximetry O2 Sat by Pulse 97 Oximetry [ Bilateral] 02/24/22 02/24/22 02/24/22 12:32 12:35 12:37 Temperature 98.3 F Pulse Rate 85 86 83 Respiratory 20 Rate Blood Pressure Blood Pressure 121/75 [Right] O2 Sat by Pulse 97 97 97 Oximetry O2 Sat by Pulse Oximetry [ Bilateral] 02/24/22 02/24/22 02/24/22 12:42 12:47 12:52 Temperature Pulse Rate 93 H 84 86 Respiratory Rate Blood Pressure Blood Pressure [Right] O2 Sat by Pulse 97 97 95 Oximetry O2 Sat by Pulse Oximetry [ Bilateral] 02/24/22 02/24/22 02/24/22 12:57 13:02 13:07 Temperature Pulse Rate 88 88 82 Respiratory Rate Blood Pressure Blood Pressure [Right] O2 Sat by Pulse 96 100 97 Oximetry O2 Sat by Pulse Oximetry [ Bilateral] 02/24/22 02/24/22 02/24/22 13:12 13:14 13:16 Temperature Pulse Rate 90 93 H 88 Respiratory Rate Blood Pressure 133/83 Blood Pressure [Right] O2 Sat by Pulse 97 92 Oximetry O2 Sat by Pulse Oximetry [ Bilateral] 02/24/22 02/24/22 02/24/22 13:17 13:22 13:27 Temperature Pulse Rate 87 89 87 Respiratory Rate Blood Pressure Blood Pressure [Right] O2 Sat by Pulse 98 100 95 Oximetry O2 Sat by Pulse Oximetry [ Bilateral] 02/24/22 02/24/22 02/24/22 13:28 13:32 13:37 Temperature Pulse Rate 85 90 83 Respiratory Rate Blood Pressure Blood Pressure [Right] O2 Sat by Pulse 94 98 97 Oximetry O2 Sat by Pulse Oximetry [ Bilateral] 02/24/22 02/24/22 02/24/22 13:42 13:44 13:47 Temperature Pulse Rate 87 74 94 H Respiratory Rate Blood Pressure Blood Pressure [Right] O2 Sat by Pulse 97 93 97 Oximetry O2 Sat by Pulse Oximetry [ Bilateral] 02/24/22 02/24/22 02/24/22 13:52 13:57 14:02 Temperature Pulse Rate 88 87 84 Respiratory Rate Blood Pressure Blood Pressure [Right] O2 Sat by Pulse 96 98 98 Oximetry O2 Sat by Pulse Oximetry [ Bilateral] 02/24/22 02/24/22 02/24/22 14:07 14:11 14:12 Temperature Pulse Rate 89 85 87 Respiratory Rate Blood Pressure Blood Pressure [Right] O2 Sat by Pulse 97 94 98 Oximetry O2 Sat by Pulse Oximetry [ Bilateral] 02/24/22 02/24/22 02/24/22 14:14 14:17 14:22 Temperature Pulse Rate 84 87 97 H Respiratory Rate Blood Pressure 136/84 Blood Pressure [Right] O2 Sat by Pulse 99 94 Oximetry O2 Sat by Pulse Oximetry [ Bilateral] 02/24/22 02/24/22 02/24/22 14:27 14:32 14:35 Temperature Pulse Rate 85 91 H Respiratory Rate Blood Pressure Blood Pressure [Right] O2 Sat by Pulse 99 97 Oximetry O2 Sat by Pulse 95 Oximetry [ Bilateral] 02/24/22 02/24/22 02/24/22 14:37 14:42 14:47 Temperature Pulse Rate 91 H 93 H 97 H Respiratory Rate Blood Pressure Blood Pressure [Right] O2 Sat by Pulse 95 97 96 Oximetry O2 Sat by Pulse Oximetry [ Bilateral] 02/24/22 02/24/22 02/24/22 14:52 14:57 15:02 Temperature Pulse Rate 85 87 75 Respiratory Rate Blood Pressure Blood Pressure [Right] O2 Sat by Pulse 98 99 97 Oximetry O2 Sat by Pulse Oximetry [ Bilateral] 02/24/22 02/24/22 02/24/22 15:07 15:12 15:14 Temperature Pulse Rate 77 85 80 Respiratory Rate Blood Pressure 144/70 Blood Pressure [Right] O2 Sat by Pulse 96 98 Oximetry O2 Sat by Pulse Oximetry [ Bilateral] 02/24/22 02/24/22 02/24/22 15:17 15:22 15:27 Temperature Pulse Rate 85 79 85 Respiratory Rate Blood Pressure 144/70 Blood Pressure [Right] O2 Sat by Pulse 98 98 98 Oximetry O2 Sat by Pulse Oximetry [ Bilateral] 02/24/22 02/24/22 02/24/22 15:28 15:32 15:37 Temperature Pulse Rate 88 80 81 Respiratory Rate Blood Pressure Blood Pressure [Right] O2 Sat by Pulse 92 100 99 Oximetry O2 Sat by Pulse Oximetry [ Bilateral] 02/24/22 02/24/22 02/24/22 15:42 15:47 15:52 Temperature Pulse Rate 93 H 92 H 89 Respiratory Rate Blood Pressure Blood Pressure [Right] O2 Sat by Pulse 98 96 96 Oximetry O2 Sat by Pulse Oximetry [ Bilateral] 02/24/22 02/24/22 02/24/22 15:57 15:58 16:02 Temperature Pulse Rate 83 88 89 Respiratory Rate Blood Pressure Blood Pressure [Right] O2 Sat by Pulse 95 93 97 Oximetry O2 Sat by Pulse Oximetry [ Bilateral] 02/24/22 02/24/22 02/24/22 16:07 16:12 16:14 Temperature Pulse Rate 82 79 84 Respiratory Rate Blood Pressure 136/77 Blood Pressure [Right] O2 Sat by Pulse 96 96 Oximetry O2 Sat by Pulse Oximetry [ Bilateral] 02/24/22 02/24/22 02/24/22 16:17 16:22 16:27 Temperature Pulse Rate 93 H 77 Respiratory Rate Blood Pressure Blood Pressure [Right] O2 Sat by Pulse 98 97 100 Oximetry O2 Sat by Pulse Oximetry [ Bilateral] 02/24/22 02/24/22 02/24/22 16:32 16:37 16:42 Temperature Pulse Rate 87 81 78 Respiratory Rate Blood Pressure Blood Pressure [Right] O2 Sat by Pulse 98 97 97 Oximetry O2 Sat by Pulse Oximetry [ Bilateral] 02/24/22 02/24/22 02/24/22 16:47 16:52 16:57 Temperature Pulse Rate 81 81 83 Respiratory Rate Blood Pressure Blood Pressure [Right] O2 Sat by Pulse 100 97 98 Oximetry O2 Sat by Pulse Oximetry [ Bilateral] 02/24/22 02/24/22 02/24/22 17:02 17:07 17:12 Temperature Pulse Rate 83 84 87 Respiratory Rate Blood Pressure Blood Pressure [Right] O2 Sat by Pulse 96 97 97 Oximetry O2 Sat by Pulse Oximetry [ Bilateral] 02/24/22 02/24/22 02/24/22 17:14 17:17 17:22 Temperature Pulse Rate 95 H 82 90 Respiratory Rate Blood Pressure 135/65 Blood Pressure [Right] O2 Sat by Pulse 97 98 Oximetry O2 Sat by Pulse Oximetry [ Bilateral] 02/24/22 02/24/22 02/24/22 17:27 17:32 17:37 Temperature Pulse Rate 91 H 89 84 Respiratory Rate Blood Pressure Blood Pressure [Right] O2 Sat by Pulse 98 98 97 Oximetry O2 Sat by Pulse Oximetry [ Bilateral] 02/24/22 02/24/22 02/24/22 17:42 17:47 17:52 Temperature Pulse Rate 87 88 83 Respiratory Rate Blood Pressure Blood Pressure [Right] O2 Sat by Pulse 96 98 96 Oximetry O2 Sat by Pulse Oximetry [ Bilateral] 02/24/22 02/24/22 02/24/22 17:57 18:02 18:07 Temperature Pulse Rate 82 90 95 H Respiratory Rate Blood Pressure Blood Pressure [Right] O2 Sat by Pulse 96 97 97 Oximetry O2 Sat by Pulse Oximetry [ Bilateral] 02/24/22 02/24/22 02/24/22 18:12 18:14 18:17 Temperature Pulse Rate 89 85 88 Respiratory Rate Blood Pressure 143/83 Blood Pressure [Right] O2 Sat by Pulse 99 98 Oximetry O2 Sat by Pulse Oximetry [ Bilateral] 02/24/22 02/24/22 02/24/22 18:22 18:27 18:32 Temperature Pulse Rate 90 90 89 Respiratory Rate Blood Pressure Blood Pressure [Right] O2 Sat by Pulse 99 99 99 Oximetry O2 Sat by Pulse Oximetry [ Bilateral] 02/24/22 02/24/22 02/24/22 18:37 18:42 18:47 Temperature Pulse Rate 93 H 86 81 Respiratory Rate Blood Pressure Blood Pressure [Right] O2 Sat by Pulse 97 99 99 Oximetry O2 Sat by Pulse Oximetry [ Bilateral] 02/24/22 02/24/22 02/24/22 18:52 18:57 19:02 Temperature Pulse Rate 90 93 H 90 Respiratory Rate Blood Pressure Blood Pressure [Right] O2 Sat by Pulse 99 97 97 Oximetry O2 Sat by Pulse Oximetry [ Bilateral] 02/24/22 02/24/22 02/24/22 19:07 19:12 19:14 Temperature Pulse Rate 88 88 83 Respiratory Rate Blood Pressure 139/83 Blood Pressure [Right] O2 Sat by Pulse 97 99 Oximetry O2 Sat by Pulse Oximetry [ Bilateral] 02/24/22 02/24/22 02/24/22 19:17 19:22 19:25 Temperature Pulse Rate 92 H 87 Respiratory Rate Blood Pressure Blood Pressure [Right] O2 Sat by Pulse 100 99 Oximetry O2 Sat by Pulse 97 Oximetry [ Bilateral] 02/24/22 02/24/22 02/24/22 19:27 19:32 19:36 Temperature 97.4 F L Pulse Rate 88 88 Respiratory Rate Blood Pressure Blood Pressure [Right] O2 Sat by Pulse 98 99 Oximetry O2 Sat by Pulse Oximetry [ Bilateral] 02/24/22 02/24/22 02/24/22 19:37 19:42 19:47 Temperature Pulse Rate 84 81 82 Respiratory Rate Blood Pressure Blood Pressure [Right] O2 Sat by Pulse 97 98 98 Oximetry O2 Sat by Pulse Oximetry [ Bilateral] 02/24/22 02/24/22 02/24/22 19:52 19:57 20:02 Temperature Pulse Rate 82 91 H 92 H Respiratory Rate Blood Pressure Blood Pressure [Right] O2 Sat by Pulse 97 98 99 Oximetry O2 Sat by Pulse Oximetry [ Bilateral] 02/24/22 02/24/22 02/24/22 20:04 20:07 20:12 Temperature Pulse Rate 99 H 89 91 H Respiratory Rate Blood Pressure Blood Pressure [Right] O2 Sat by Pulse 85 97 99 Oximetry O2 Sat by Pulse Oximetry [ Bilateral] 02/24/22 02/24/22 02/24/22 20:14 20:16 20:17 Temperature Pulse Rate 89 89 79 Respiratory Rate Blood Pressure 158/100 Blood Pressure [Right] O2 Sat by Pulse 93 100 Oximetry O2 Sat by Pulse Oximetry [ Bilateral] 02/24/22 02/24/22 02/24/22 20:22 20:23 20:25 Temperature Pulse Rate 85 85 80 Respiratory Rate Blood Pressure 151/91 Blood Pressure [Right] O2 Sat by Pulse 96 92 Oximetry O2 Sat by Pulse Oximetry [ Bilateral] 02/24/22 02/24/22 02/24/22 20:27 20:32 20:37 Temperature Pulse Rate 83 86 92 H Respiratory Rate Blood Pressure Blood Pressure [Right] O2 Sat by Pulse 99 98 97 Oximetry O2 Sat by Pulse Oximetry [ Bilateral] 02/24/22 02/24/22 02/24/22 20:42 20:45 20:47 Temperature Pulse Rate 81 89 69 Respiratory Rate Blood Pressure Blood Pressure [Right] O2 Sat by Pulse 100 94 96 Oximetry O2 Sat by Pulse Oximetry [ Bilateral] 02/24/22 02/24/22 02/24/22 20:50 20:52 20:56 Temperature Pulse Rate 78 75 81 Respiratory Rate Blood Pressure 158/98 Blood Pressure [Right] O2 Sat by Pulse 92 96 Oximetry O2 Sat by Pulse Oximetry [ Bilateral] 02/24/22 02/24/22 02/24/22 20:57 21:02 21:07 Temperature Pulse Rate 96 H 87 89 Respiratory Rate Blood Pressure Blood Pressure [Right] O2 Sat by Pulse 99 99 97 Oximetry O2 Sat by Pulse Oximetry [ Bilateral] 02/24/22 02/24/22 02/24/22 21:10 21:12 21:17 Temperature Pulse Rate 74 74 72 Respiratory Rate Blood Pressure Blood Pressure [Right] O2 Sat by Pulse 94 97 99 Oximetry O2 Sat by Pulse Oximetry [ Bilateral] 02/24/22 02/24/22 02/24/22 21:19 21:22 21:26 Temperature Pulse Rate 76 72 75 Respiratory Rate Blood Pressure 135/66 Blood Pressure [Right] O2 Sat by Pulse 94 97 Oximetry O2 Sat by Pulse Oximetry [ Bilateral] 02/24/22 02/24/22 02/24/22 21:27 21:32 21:37 Temperature Pulse Rate 77 81 82 Respiratory Rate Blood Pressure Blood Pressure [Right] O2 Sat by Pulse 98 98 98 Oximetry O2 Sat by Pulse Oximetry [ Bilateral] 02/24/22 02/24/22 02/24/22 21:42 21:47 21:52 Temperature Pulse Rate 80 82 79 Respiratory Rate Blood Pressure Blood Pressure [Right] O2 Sat by Pulse 98 99 96 Oximetry O2 Sat by Pulse Oximetry [ Bilateral] 02/24/22 02/24/22 21:57 22:02 Temperature Pulse Rate 92 H 90 Respiratory Rate Blood Pressure Blood Pressure [Right] O2 Sat by Pulse 99 100 Oximetry O2 Sat by Pulse Oximetry [ Bilateral] - Labs CBC & Chem 7: 02/24/22 08:48 02/24/22 08:48 Labs: Abnormal lab results 02/24/22 02/24/22 02/24/22 Range/Units 08:48 08:48 08:48 RBC 3.30 L (3.65-5.03) M/mm3 Hgb 9.4 L (10.1-14.3) gm/dl Hct 28.3 L (30.3-42.9) % Creatinine 0.5 L (0.6-1.2) mg/dL Magnesium 5.30 H (1.7-2.3) mg/dL 02/24/22 02/24/22 Range/Units 12:01 19:18 RBC (3.65-5.03) M/mm3 Hgb (10.1-14.3) gm/dl Hct (30.3-42.9) % Creatinine (0.6-1.2) mg/dL Magnesium 5.50 H 5.80 H (1.7-2.3) mg/dL
[2022-02-24] MEDS ORDERED: NEOSTIGMINE 10MG/10 ML INJ MDV IV PRN (23:41)
--- NOTE | 2022-02-24 23:47 | Progress Note ---
Subjective Date of service: 02/24/22 Principal diagnosis: PPD #3 s/p , Preeclampsia, Magnesium Sulfate infusing Interval history: Pt received an epidural blood patch at 2249. Pt stated little relief after 1 min and by 5 mins, moderate relief. Pt placed in supine position. Objective - Constitutional Vitals: Vital Signs - 12hr 02/24/22 02/24/22 02/24/22 11:47 11:52 11:57 Temperature Pulse Rate 85 85 82 Respiratory Rate Blood Pressure Blood Pressure [Right] O2 Sat by Pulse 97 98 99 Oximetry O2 Sat by Pulse Oximetry [ Bilateral] 02/24/22 02/24/22 02/24/22 12:02 12:07 12:12 Temperature Pulse Rate 89 88 85 Respiratory Rate Blood Pressure Blood Pressure [Right] O2 Sat by Pulse 99 97 96 Oximetry O2 Sat by Pulse Oximetry [ Bilateral] 02/24/22 02/24/22 02/24/22 12:17 12:22 12:23 Temperature Pulse Rate 90 92 H 86 Respiratory Rate Blood Pressure 121/75 Blood Pressure [Right] O2 Sat by Pulse 98 98 Oximetry O2 Sat by Pulse Oximetry [ Bilateral] 02/24/22 02/24/22 02/24/22 12:27 12:30 12:32 Temperature Pulse Rate 80 85 Respiratory Rate Blood Pressure Blood Pressure [Right] O2 Sat by Pulse 98 97 Oximetry O2 Sat by Pulse 97 Oximetry [ Bilateral] 02/24/22 02/24/22 02/24/22 12:35 12:37 12:42 Temperature 98.3 F Pulse Rate 86 83 93 H Respiratory 20 Rate Blood Pressure Blood Pressure 121/75 [Right] O2 Sat by Pulse 97 97 97 Oximetry O2 Sat by Pulse Oximetry [ Bilateral] 02/24/22 02/24/22 02/24/22 12:47 12:52 12:57 Temperature Pulse Rate 84 86 88 Respiratory Rate Blood Pressure Blood Pressure [Right] O2 Sat by Pulse 97 95 96 Oximetry O2 Sat by Pulse Oximetry [ Bilateral] 02/24/22 02/24/22 02/24/22 13:02 13:07 13:12 Temperature Pulse Rate 88 82 90 Respiratory Rate Blood Pressure Blood Pressure [Right] O2 Sat by Pulse 100 97 97 Oximetry O2 Sat by Pulse Oximetry [ Bilateral] 02/24/22 02/24/22 02/24/22 13:14 13:16 13:17 Temperature Pulse Rate 93 H 88 87 Respiratory Rate Blood Pressure 133/83 Blood Pressure [Right] O2 Sat by Pulse 92 98 Oximetry O2 Sat by Pulse Oximetry [ Bilateral] 02/24/22 02/24/22 02/24/22 13:22 13:27 13:28 Temperature Pulse Rate 89 87 85 Respiratory Rate Blood Pressure Blood Pressure [Right] O2 Sat by Pulse 100 95 94 Oximetry O2 Sat by Pulse Oximetry [ Bilateral] 02/24/22 02/24/22 02/24/22 13:32 13:37 13:42 Temperature Pulse Rate 90 83 87 Respiratory Rate Blood Pressure Blood Pressure [Right] O2 Sat by Pulse 98 97 97 Oximetry O2 Sat by Pulse Oximetry [ Bilateral] 02/24/22 02/24/22 02/24/22 13:44 13:47 13:52 Temperature Pulse Rate 74 94 H 88 Respiratory Rate Blood Pressure Blood Pressure [Right] O2 Sat by Pulse 93 97 96 Oximetry O2 Sat by Pulse Oximetry [ Bilateral] 02/24/22 02/24/22 02/24/22 13:57 14:02 14:07 Temperature Pulse Rate 87 84 89 Respiratory Rate Blood Pressure Blood Pressure [Right] O2 Sat by Pulse 98 98 97 Oximetry O2 Sat by Pulse Oximetry [ Bilateral] 02/24/22 02/24/22 02/24/22 14:11 14:12 14:14 Temperature Pulse Rate 85 87 84 Respiratory Rate Blood Pressure 136/84 Blood Pressure [Right] O2 Sat by Pulse 94 98 Oximetry O2 Sat by Pulse Oximetry [ Bilateral] 02/24/22 02/24/22 02/24/22 14:17 14:22 14:27 Temperature Pulse Rate 87 97 H 85 Respiratory Rate Blood Pressure Blood Pressure [Right] O2 Sat by Pulse 99 94 99 Oximetry O2 Sat by Pulse Oximetry [ Bilateral] 02/24/22 02/24/22 02/24/22 14:32 14:35 14:37 Temperature Pulse Rate 91 H 91 H Respiratory Rate Blood Pressure Blood Pressure [Right] O2 Sat by Pulse 97 95 Oximetry O2 Sat by Pulse 95 Oximetry [ Bilateral] 02/24/22 02/24/22 02/24/22 14:42 14:47 14:52 Temperature Pulse Rate 93 H 97 H 85 Respiratory Rate Blood Pressure Blood Pressure [Right] O2 Sat by Pulse 97 96 98 Oximetry O2 Sat by Pulse Oximetry [ Bilateral] 02/24/22 02/24/22 02/24/22 14:57 15:02 15:07 Temperature Pulse Rate 87 75 77 Respiratory Rate Blood Pressure Blood Pressure [Right] O2 Sat by Pulse 99 97 96 Oximetry O2 Sat by Pulse Oximetry [ Bilateral] 02/24/22 02/24/22 02/24/22 15:12 15:14 15:17 Temperature Pulse Rate 85 80 85 Respiratory Rate Blood Pressure 144/70 144/70 Blood Pressure [Right] O2 Sat by Pulse 98 98 Oximetry O2 Sat by Pulse Oximetry [ Bilateral] 02/24/22 02/24/22 02/24/22 15:22 15:27 15:28 Temperature Pulse Rate 79 85 88 Respiratory Rate Blood Pressure Blood Pressure [Right] O2 Sat by Pulse 98 98 92 Oximetry O2 Sat by Pulse Oximetry [ Bilateral] 02/24/22 02/24/22 02/24/22 15:32 15:37 15:42 Temperature Pulse Rate 80 81 93 H Respiratory Rate Blood Pressure Blood Pressure [Right] O2 Sat by Pulse 100 99 98 Oximetry O2 Sat by Pulse Oximetry [ Bilateral] 02/24/22 02/24/22 02/24/22 15:47 15:52 15:57 Temperature Pulse Rate 92 H 89 83 Respiratory Rate Blood Pressure Blood Pressure [Right] O2 Sat by Pulse 96 96 95 Oximetry O2 Sat by Pulse Oximetry [ Bilateral] 02/24/22 02/24/22 02/24/22 15:58 16:02 16:07 Temperature Pulse Rate 88 89 82 Respiratory Rate Blood Pressure Blood Pressure [Right] O2 Sat by Pulse 93 97 96 Oximetry O2 Sat by Pulse Oximetry [ Bilateral] 02/24/22 02/24/22 02/24/22 16:12 16:14 16:17 Temperature Pulse Rate 79 84 93 H Respiratory Rate Blood Pressure 136/77 Blood Pressure [Right] O2 Sat by Pulse 96 98 Oximetry O2 Sat by Pulse Oximetry [ Bilateral] 02/24/22 02/24/22 02/24/22 16:22 16:27 16:32 Temperature Pulse Rate 77 87 Respiratory Rate Blood Pressure Blood Pressure [Right] O2 Sat by Pulse 97 100 98 Oximetry O2 Sat by Pulse Oximetry [ Bilateral] 02/24/22 02/24/22 02/24/22 16:37 16:42 16:47 Temperature Pulse Rate 81 78 81 Respiratory Rate Blood Pressure Blood Pressure [Right] O2 Sat by Pulse 97 97 100 Oximetry O2 Sat by Pulse Oximetry [ Bilateral] 02/24/22 02/24/22 02/24/22 16:52 16:57 17:02 Temperature Pulse Rate 81 83 83 Respiratory Rate Blood Pressure Blood Pressure [Right] O2 Sat by Pulse 97 98 96 Oximetry O2 Sat by Pulse Oximetry [ Bilateral] 02/24/22 02/24/22 02/24/22 17:07 17:12 17:14 Temperature Pulse Rate 84 87 95 H Respiratory Rate Blood Pressure 135/65 Blood Pressure [Right] O2 Sat by Pulse 97 97 Oximetry O2 Sat by Pulse Oximetry [ Bilateral] 02/24/22 02/24/22 02/24/22 17:17 17:22 17:27 Temperature Pulse Rate 82 90 91 H Respiratory Rate Blood Pressure Blood Pressure [Right] O2 Sat by Pulse 97 98 98 Oximetry O2 Sat by Pulse Oximetry [ Bilateral] 02/24/22 02/24/22 02/24/22 17:32 17:37 17:42 Temperature Pulse Rate 89 84 87 Respiratory Rate Blood Pressure Blood Pressure [Right] O2 Sat by Pulse 98 97 96 Oximetry O2 Sat by Pulse Oximetry [ Bilateral] 02/24/22 02/24/22 02/24/22 17:47 17:52 17:57 Temperature Pulse Rate 88 83 82 Respiratory Rate Blood Pressure Blood Pressure [Right] O2 Sat by Pulse 98 96 96 Oximetry O2 Sat by Pulse Oximetry [ Bilateral] 02/24/22 02/24/22 02/24/22 18:02 18:07 18:12 Temperature Pulse Rate 90 95 H 89 Respiratory Rate Blood Pressure Blood Pressure [Right] O2 Sat by Pulse 97 97 99 Oximetry O2 Sat by Pulse Oximetry [ Bilateral] 02/24/22 02/24/22 02/24/22 18:14 18:17 18:22 Temperature Pulse Rate 85 88 90 Respiratory Rate Blood Pressure 143/83 Blood Pressure [Right] O2 Sat by Pulse 98 99 Oximetry O2 Sat by Pulse Oximetry [ Bilateral] 02/24/22 02/24/22 02/24/22 18:27 18:32 18:37 Temperature Pulse Rate 90 89 93 H Respiratory Rate Blood Pressure Blood Pressure [Right] O2 Sat by Pulse 99 99 97 Oximetry O2 Sat by Pulse Oximetry [ Bilateral] 02/24/22 02/24/22 02/24/22 18:42 18:47 18:52 Temperature Pulse Rate 86 81 90 Respiratory Rate Blood Pressure Blood Pressure [Right] O2 Sat by Pulse 99 99 99 Oximetry O2 Sat by Pulse Oximetry [ Bilateral] 02/24/22 02/24/22 02/24/22 18:57 19:02 19:07 Temperature Pulse Rate 93 H 90 88 Respiratory Rate Blood Pressure Blood Pressure [Right] O2 Sat by Pulse 97 97 97 Oximetry O2 Sat by Pulse Oximetry [ Bilateral] 02/24/22 02/24/22 02/24/22 19:12 19:14 19:17 Temperature Pulse Rate 88 83 92 H Respiratory Rate Blood Pressure 139/83 Blood Pressure [Right] O2 Sat by Pulse 99 100 Oximetry O2 Sat by Pulse Oximetry [ Bilateral] 02/24/22 02/24/22 02/24/22 19:22 19:25 19:27 Temperature Pulse Rate 87 88 Respiratory Rate Blood Pressure Blood Pressure [Right] O2 Sat by Pulse 99 98 Oximetry O2 Sat by Pulse 97 Oximetry [ Bilateral] 02/24/22 02/24/22 02/24/22 19:32 19:36 19:37 Temperature 97.4 F L Pulse Rate 88 84 Respiratory Rate Blood Pressure Blood Pressure [Right] O2 Sat by Pulse 99 97 Oximetry O2 Sat by Pulse Oximetry [ Bilateral] 02/24/22 02/24/22 02/24/22 19:42 19:47 19:52 Temperature Pulse Rate 81 82 82 Respiratory Rate Blood Pressure Blood Pressure [Right] O2 Sat by Pulse 98 98 97 Oximetry O2 Sat by Pulse Oximetry [ Bilateral] 02/24/22 02/24/22 02/24/22 19:57 20:02 20:04 Temperature Pulse Rate 91 H 92 H 99 H Respiratory Rate Blood Pressure Blood Pressure [Right] O2 Sat by Pulse 98 99 85 Oximetry O2 Sat by Pulse Oximetry [ Bilateral] 02/24/22 02/24/22 02/24/22 20:07 20:12 20:14 Temperature Pulse Rate 89 91 H 89 Respiratory Rate Blood Pressure 158/100 Blood Pressure [Right] O2 Sat by Pulse 97 99 Oximetry O2 Sat by Pulse Oximetry [ Bilateral] 02/24/22 02/24/22 02/24/22 20:16 20:17 20:22 Temperature Pulse Rate 89 79 85 Respiratory Rate Blood Pressure Blood Pressure [Right] O2 Sat by Pulse 93 100 96 Oximetry O2 Sat by Pulse Oximetry [ Bilateral] 02/24/22 02/24/22 02/24/22 20:23 20:25 20:27 Temperature Pulse Rate 85 80 83 Respiratory Rate Blood Pressure 151/91 Blood Pressure [Right] O2 Sat by Pulse 92 99 Oximetry O2 Sat by Pulse Oximetry [ Bilateral] 02/24/22 02/24/22 02/24/22 20:32 20:37 20:42 Temperature Pulse Rate 86 92 H 81 Respiratory Rate Blood Pressure Blood Pressure [Right] O2 Sat by Pulse 98 97 100 Oximetry O2 Sat by Pulse Oximetry [ Bilateral] 02/24/22 02/24/22 02/24/22 20:45 20:47 20:50 Temperature Pulse Rate 89 69 78 Respiratory Rate Blood Pressure Blood Pressure [Right] O2 Sat by Pulse 94 96 92 Oximetry O2 Sat by Pulse Oximetry [ Bilateral] 02/24/22 02/24/22 02/24/22 20:52 20:56 20:57 Temperature Pulse Rate 75 81 96 H Respiratory Rate Blood Pressure 158/98 Blood Pressure [Right] O2 Sat by Pulse 96 99 Oximetry O2 Sat by Pulse Oximetry [ Bilateral] 02/24/22 02/24/22 02/24/22 21:02 21:07 21:10 Temperature Pulse Rate 87 89 74 Respiratory Rate Blood Pressure Blood Pressure [Right] O2 Sat by Pulse 99 97 94 Oximetry O2 Sat by Pulse Oximetry [ Bilateral] 02/24/22 02/24/22 02/24/22 21:12 21:17 21:19 Temperature Pulse Rate 74 72 76 Respiratory Rate Blood Pressure Blood Pressure [Right] O2 Sat by Pulse 97 99 94 Oximetry O2 Sat by Pulse Oximetry [ Bilateral] 02/24/22 02/24/22 02/24/22 21:22 21:26 21:27 Temperature Pulse Rate 72 75 77 Respiratory Rate Blood Pressure 135/66 Blood Pressure [Right] O2 Sat by Pulse 97 98 Oximetry O2 Sat by Pulse Oximetry [ Bilateral] 02/24/22 02/24/22 02/24/22 21:32 21:37 21:42 Temperature Pulse Rate 81 82 80 Respiratory Rate Blood Pressure Blood Pressure [Right] O2 Sat by Pulse 98 98 98 Oximetry O2 Sat by Pulse Oximetry [ Bilateral] 02/24/22 02/24/22 02/24/22 21:47 21:52 21:57 Temperature Pulse Rate 82 79 92 H Respiratory Rate Blood Pressure Blood Pressure [Right] O2 Sat by Pulse 99 96 99 Oximetry O2 Sat by Pulse Oximetry [ Bilateral] 02/24/22 02/24/22 02/24/22 22:02 22:06 22:07 Temperature Pulse Rate 90 96 H 85 Respiratory Rate Blood Pressure 141/92 Blood Pressure [Right] O2 Sat by Pulse 100 91 99 Oximetry O2 Sat by Pulse Oximetry [ Bilateral] 02/24/22 02/24/22 02/24/22 22:12 22:17 22:22 Temperature Pulse Rate 90 91 H 81 Respiratory Rate Blood Pressure Blood Pressure [Right] O2 Sat by Pulse 98 97 97 Oximetry O2 Sat by Pulse Oximetry [ Bilateral] 02/24/22 02/24/22 02/24/22 22:26 22:27 22:32 Temperature Pulse Rate 83 82 87 Respiratory Rate Blood Pressure 134/76 Blood Pressure [Right] O2 Sat by Pulse 99 96 Oximetry O2 Sat by Pulse Oximetry [ Bilateral] 02/24/22 02/24/22 02/24/22 22:33 22:37 22:42 Temperature Pulse Rate 85 93 H 86 Respiratory Rate Blood Pressure Blood Pressure [Right] O2 Sat by Pulse 90 98 99 Oximetry O2 Sat by Pulse Oximetry [ Bilateral] 02/24/22 02/24/22 02/24/22 22:47 22:52 22:55 Temperature Pulse Rate 87 89 90 Respiratory Rate Blood Pressure 154/99 Blood Pressure [Right] O2 Sat by Pulse 97 96 Oximetry O2 Sat by Pulse Oximetry [ Bilateral] 02/24/22 02/24/22 02/24/22 22:56 22:57 23:02 Temperature Pulse Rate 98 H 96 H 95 H Respiratory Rate Blood Pressure 168/96 Blood Pressure [Right] O2 Sat by Pulse 99 99 Oximetry O2 Sat by Pulse Oximetry [ Bilateral] 02/24/22 02/24/22 02/24/22 23:03 23:05 23:07 Temperature Pulse Rate 92 H 93 H 93 H Respiratory Rate Blood Pressure 164/105 160/97 Blood Pressure [Right] O2 Sat by Pulse 99 Oximetry O2 Sat by Pulse Oximetry [ Bilateral] 02/24/22 02/24/22 02/24/22 23:09 23:12 23:14 Temperature Pulse Rate 90 86 81 Respiratory Rate Blood Pressure 156/96 158/94 Blood Pressure [Right] O2 Sat by Pulse 96 Oximetry O2 Sat by Pulse Oximetry [ Bilateral] 02/24/22 02/24/22 02/24/22 23:17 23:22 23:27 Temperature Pulse Rate 82 79 86 Respiratory Rate Blood Pressure Blood Pressure [Right] O2 Sat by Pulse 97 95 96 Oximetry O2 Sat by Pulse Oximetry [ Bilateral] 02/24/22 02/24/22 02/24/22 23:31 23:32 23:37 Temperature Pulse Rate 79 85 86 Respiratory Rate Blood Pressure 145/95 Blood Pressure [Right] O2 Sat by Pulse 95 99 Oximetry O2 Sat by Pulse Oximetry [ Bilateral] 02/24/22 23:42 Temperature Pulse Rate 85 Respiratory Rate Blood Pressure Blood Pressure [Right] O2 Sat by Pulse 98 Oximetry O2 Sat by Pulse Oximetry [ Bilateral] - Labs CBC & Chem 7: 02/24/22 08:48 02/24/22 08:48 Labs: Abnormal lab results 02/24/22 02/24/22 02/24/22 Range/Units 08:48 08:48 08:48 RBC 3.30 L (3.65-5.03) M/mm3 Hgb 9.4 L (10.1-14.3) gm/dl Hct 28.3 L (30.3-42.9) % Creatinine 0.5 L (0.6-1.2) mg/dL Magnesium 5.30 H (1.7-2.3) mg/dL 02/24/22 02/24/22 Range/Units 12:01 19:18 RBC (3.65-5.03) M/mm3 Hgb (10.1-14.3) gm/dl Hct (30.3-42.9) % Creatinine (0.6-1.2) mg/dL Magnesium 5.50 H 5.80 H (1.7-2.3) mg/dL
[2022-02-25] MEDS ORDERED: NEOSTIGMINE IV SCH (00:15)
[2022-02-25] MEDS ORDERED: SODIUM CHLORIDE 0.9% IV SCH (00:15)
[2022-02-25] MEDS ORDERED: ATROPINE IV SCH (00:15)
[2022-02-25] MEDS: DOCUSATE SODIUM 100 MG CAP PO SCH ×2 (00:39→09:34)
[2022-02-25] MEDS: ACETAMINOPHEN 325 MG TAB PO PRN (00:39)
[2022-02-25] MEDS: IBUPROFEN 800 MG TAB PO SCH (05:08)
[2022-02-25] MEDS: FERROUS SULFATE 325 MG TAB PO SCH (09:34)
--- NOTE | 2022-02-25 10:06 | Event Note ---
Date: 02/25/22 Pt is very anxious to be discharged home. Would like to go home today. Blood pressure ranges have been mostly 130-150'/60-80's with a few severe ranges. Will continue with Labetalol 300mg TID. Possible discharge home this afternoon if blood pressures remain in the 130-150's/60-80's ranges. Pt continues to deny FONTANA, blurred vision, spots before her eyes, chest pain, upper abdominal pain, and shortness of breath.
[2022-02-25] MEDS: SENNOSIDES/DOCUSATE SODIUM 8.6/50 MG TAB PO SCH (11:47)
[2022-02-25 12:00] VITALS: BP 149/88
--- NOTE | 2022-02-25 13:10 | Discharge Summary ---
Providers - Providers Date of Admission: 02/21/22 06:20 Date of discharge: 02/25/22 Attending physician: ARTHUR RONDON 02/21/22 16:06 Consult to Teleprinter [CONS] Routine Reason For Exam: assistance with , SNS Primary care physician: ARTHUR RONDON Hospitalization Reason for admission: active labor Delivery: Episiotomy: none Laceration: vaginal side wall Other procedures: none complications: spinal headache (Blood patch completed and patient feels much better. ), other (Pre Eclampsia, s/p magnesium infusion) baby: male Pertinent studies: Pt denies FONTANA, blurred vision, spots before her eyes, chest pain, shortness of breath, and upper abdominal pain. We discussed should any of these occur with/without a blood pressure of 160/110 or greater she will call the operations lieutenant provider and come to [facility] ER for an evaluation. Also discussed with patient and her mother, the need to be seen in the office on March 01 @ 145 pm for a blood pressure check. Explained how to take a proper blood pressure with an at home blood pressure monitor. Pt had a blood patch the previous evening and states that she is feeling much better. All questions and concerns were addressed before discharge. Hospital course: S: Pt ambulating, voiding, and passing flatus okay. BC: Undecided. O: VSS. Fundus firm, minimal bleeding noted. H/H 9.4/28.3. Asymptomatic anemia of delivery. A: 21 y.o. s/p . Pre eclampisa, s/p magnesium infusion. Spinal headache, s/p blood patch. P: Discharge home with instructions. Appointment made for March 01 @ 145 pm for blood pressure check. Pt to make circumcision appointment. Condition at discharge: Good Disposition: 01 HOME / SELF CARE / HOMELESS - Discharge Diagnoses (1) (normal spontaneous vaginal delivery) Status: Acute Plan - Discharge Medications Prescriptions: Docusate Sodium [Colace] 100 mg PO BID PRN #60 capsule PRN Reason: Constipation Lidocain2.5%/Prilocai2.5% [Emla] 1 applic TP ONCE #1 tube Ferrous Sulfate [Feosol 325 MG tab] 325 mg PO QDAY #30 tablet Labetalol HCl [Labetalol 300mg TAB] 300 mg PO TID #90 - Provider Discharge Summary Activity: routine, no sex for 6 weeks, no heavy lifting 4 weeks, no strenuous exercise Diet: routine Instructions: routine Additional instructions: [] Smoking cessation referral if applicable(refer to patient education folder for contact #) [] Refer to [facility] Booklet Call your doctor immediately for: * Fever > 100.5 * Heavy vaginal bleeding ( >1 pad per hour) * Severe persistent headache * Shortness of breath * Reddened, hot, painful area to leg or breast * Drainage or odor from incision. * Keep incision clean and dry at all times and follow doctor's instructions regarding bathing/showering - Follow up plan Follow up: ARTHUR RONDON MD [Primary Care Provider] - 7 Days (- Congratulations on the of your baby boy! - Please remember to keep your scheduled blood check in the office on March 01 @ 145 pm. - Please take your blood pressure medication as directed by your provider. - Take your blood pressure at least once daily at home. - If your blood pressure is 160/110 or greater and/or you have the following symptoms, call the operations lieutenant provider immediately: headache, blurred vision, feeling like you can't catch your breath, pain in your upper ileana, or spots before your eyes. - Please schedule your son's circumcision in the office in 1 week. - You have been prescribed EMLA cream for your son's circumcision. Please do not use this cream at home, but bring it with you to your son's circumcision appointment. -Should you have any questions or concerns after discharge, please do not hesitate to call the office at [phone]. )
[2022-02-25] MEDS: PRENATAL VIT27-FE FUMARATE-FOLIC ACID VIT TAB PO SCH ×2 (15:00→15:01)
== END 2022-02-25 15:00 | disposition home or self-care (01) | DRG 774 ==
LOC: TRG 04:47 → LD 04:48 → TRG 06:19 → LD 06:20 → OB 16:03 → LD 02-23 23:23 → OB 02-25 01:21
PROVIDERS: ADMIT Obstetrics & Gynecology; ATTEND Obstetrics & Gynecology
PROC: 10E0XZZ Delivery of Products of Conception, External Approach (ICD-10-PCS; principal; 2022-02-22)
PROC: 10907ZC Drainage of Amniotic Fluid, Therapeutic from Products of Conception, Via Natural or Artificial Opening (ICD-10-PCS; 2022-02-22)
PROC: 0UQG7ZZ Repair Vagina, Via Natural or Artificial Opening (ICD-10-PCS; 2022-02-22)
PROC: 3E0R3BZ Introduction of Anesthetic Agent into Spinal Canal, Percutaneous Approach (ICD-10-PCS; 2022-02-22)
PROC: 00HU33Z Insertion of Infusion Device into Spinal Canal, Percutaneous Approach (ICD-10-PCS; 2022-02-22)
PROC: 3E0234Z Introduction of Serum, Toxoid and Vaccine into Muscle, Percutaneous Approach (ICD-10-PCS; 2022-02-22)
DX: O76 Abnormality in fetal heart rate and rhythm complicating labor and delivery (principal); O14.95 Unspecified pre-eclampsia, complicating the puerperium; Z3A.40 40 weeks gestation of pregnancy; Z20.822 Contact with and (suspected) exposure to COVID-19; O99.824 Streptococcus B carrier state complicating childbirth; O69.81X0 Labor and delivery complicated by cord around neck, without compression, not applicable or unspecified; O71.4 Obstetric high vaginal laceration alone; Z37.0 Single live birth; Z23 Encounter for immunization
CPT/HCPCS: 36415; 82565; 83615; 83735; 84450; 84460; 84550; 85014; 85018; 85027; 86592; 86850; 86900; 86901; G0378; J3490; J0290; J0461; J2405; J2710; J3010; J3475; J7120; Q0169; U0003